=== PATIENT | female | born 1975 | race Caucasian/White ===

== ENCOUNTER 2020-03-13 20:50 | Emergency (ER) | payer OTHER ==
[2020-03-13 22:18] LABS: HEMOGLOBIN 12.8 gm/dl (12.3-15.3); RED BLOOD COUNT 4.04 M/UL (4.00-5.10); WHITE BLOOD COUNT 9.7 K/UL (4.5-11.0)
[2020-03-13 22:36] LABS: BUN/CREATININE RATIO 17 (0-10)
== END 2020-03-13 23:35 | disposition home or self-care (01) ==
LOC: ER1 20:50
PROVIDERS: Family Medicine
DX: R07.9 Chest pain, unspecified (principal); M25.559 Pain in unspecified hip; E87.6 Hypokalemia; R10.13 Epigastric pain; Z88.0 Allergy status to penicillin
CPT/HCPCS: 71046; 72100; 73552; 80053; 82550; 82553; 83874; 84484; 85025; 85379; 85610; 93005; 99285